=== PATIENT | female | born 1990 | race Caucasian/White ===

== ENCOUNTER 2023-06-15 17:45 | Emergency (ER) | payer OTHER, SELFPAY ==
--- NOTE | 2023-06-15 17:58 | ED.GENADULT ---
HPI - General Adult General Chief complaint: General Medical Stated complaint: pins and needles leg rash Time Seen by Provider: 06/15/23 17:57 Source: patient and EMS Mode of arrival: EMS Limitations: no limitations History of Present Illness HPI narrative: Patient is a 32 year old assigned female at with a history of MAST cell disorder presenting to the emergency department today after an allergic reaction. Patient states that she ate 2 slices of tomato and began to have a reaction with rash and feeling generally unwell. Patient denies any dizziness, lightheadedness, abdominal pain, nausea, vomiting, fever, chills, blurry vision, double vision, loss of vision, chest pain, difficulty breathing, shortness of breath, back pain, night sweats, pain with urination, increased urinary frequency, increased urinary urgency, blood in her urine or stool, syncope or a near syncopal episode, recent trauma or falls, bowel incontinence, bladder incontinence, bowel retention, bladder retention, or any other complaints at this time. Onset (ago): minute(s) Severity: mild Relieving factors: none Exacerbating factors: none Associated symptoms: denies other symptoms Treatments prior to arrival: none Related Data Allergies Allergy/AdvReac Type Severity Reaction Status Date / Time No Known Allergies Allergy Verified 06/15/23 18:13 Review of Systems Constitutional: Constitutional: Reports no additional constitutional complaints, Denies chills, Denies fever(s) and Denies night sweats Eyes: Eyes: Reports no additional eye complaints, Denies blurry vision, Denies change in vision, Denies diplopia, Denies eye discharge, Denies loss of vision and Denies eye pain ENT: Denies dizziness Cardiovascular: Cardiovascular: Reports no additional cardiovascular complaints, Denies chest pain, Denies lightheadedness, Denies Loss of Consciousness and Denies dyspnea Respiratory: Respiratory: Reports no additional respiratory complaints and Denies dyspnea Gastrointestinal: Gastrointestinal: Reports no additional gastrointestinal complaints, Denies abdominal pain, Denies melena, Denies hematochezia, Denies change in bowel habits and Denies change in stool character Genitourinary: Genitourinary: Denies hematuria, Denies urinary frequency, Denies dysuria, Denies urinary incontinence, Denies urinary hesitancy and Denies urinary urgency Musculoskeletal: Musculoskeletal: Reports no additional musculoskeletal complaints, Denies numbness and Denies tingling Integumentary/Breasts: Skin/Breast: Reports rash (now resolved) Neurologic: Denies dizziness, Denies loss of vision, Denies numbness and Denies tingling Psychiatric: Psychiatric: Reports no additional psychiatric complaints Endocrine: Endocrine: Reports no additional endocrine complaints Hematologic/Lymphatic: Hematologic/Lymphatic: Reports no additional hematologic/lymphatic complaints Allergic/Immunologic: Allergic/Immunologic: Reports no additional allergic/immunologic complaints [facility] Past Medical History Attestation statement: The following information was validated with the patient. Source: old records reviewed and nursing notes reviewed Social History Social History Smoked in Last 30 Days: No Use of substances other than those prescribed or required for medical reasons: No Advance Directives: No Advance Directives Information Provided: No Physical Exam ED Vital Signs: Vital Signs - 24 hr 06/15/23 18:06 06/15/23 22:36 06/15/23 23:58 Temperature 98.6 F Pulse Rate 82 89 93 Respiratory Rate 16 20 18 Blood Pressure 142/83 H 117/70 132/83 Pulse Oximetry 100 98 98 Oxygen Delivery Method Room Air Room Air Room Air BMI result Body Mass Index 28.8 Const General: cooperative, no acute distress, alert and awake Nutritional Appearance: well nourished Orientation/consciousness: patient oriented x3 Limitations: no limitations HENMT Head: Yes normal to inspection and Yes atraumatic Ears: hearing grossly normal bilaterally and external ears normal General nose exam: Normal external nose present, no nasal discharge noted and no epistaxis Face and sinus: Yes normal facial exam, No abrasion and No laceration Mouth: Normal oral and palatal mucosa present, no drooling and no muffled voice Eyes General: appearance normal, both eyes and all related structures Periorbital: periorbital findings normal Eyelids: Yes eyelids normal Conjunctivae: conjunctivae normal Pupils: Equal, round and reactive pupils present EOM: EOMs intact bilaterally Neck Neck: Yes normal visual inspection, Yes full ROM and Yes no lymphadenopathy Chest Chest palpation & inspection: normal inspection of the chest Resp Effort & Inspection: normal respiratory effort and able to speak in complete sentences GI Inspection: Yes normal to inspection Neuro General: patient oriented x3 and moves all extremities Cranial nerves: Yes Equal, round and reactive pupils present Cognition (Neuro): normal cognition Motor exam (neuro): 5/5 motor strength present throughout Sensory Exam: Normal double simultaneous stimulation for sensation Coordination: [id number] test normal Extrem General: Yes normal to inspection, Yes full ROM and Yes capillary refill normal Psych Appearance: grossly normal Mental Status: mental status grossly normal Affect: normal affect Attitude: cooperative Thought process: Normal thought process present Thought content: Normal thought content present Insight: Good insight present (Psych) Medications Administered Discontinued Medications Generic Name Dose Route Start Last Admin Trade Name Babita PRN Reason Stop Dose Admin Famotidine 20 mg 06/15/23 18:13 06/15/23 19:57 Famotidine/Pf 20 Mg/2 Ml Vial IVPUSH 06/15/23 18:14 20 mg ONCE ONE Administration Sodium Chloride 1,000 mls @ 999 mls/hr 06/15/23 18:15 06/15/23 21:18 Ns IV 06/15/23 19:15 Infused .Q1H1M CHASE Infusion Medical Decision Making Medical Decision Making [facility] Narrative: Patient is a 32 year old assigned female at with a history of MAST cell activation presenting to the emergency department today with an allergic reaction after ingesting tomato. Patient's physical exam was unremarkable. Patient's blood work was unremarkable. Patient's urine showed no acute process. I explained my physical exam findings as well as all test results to the patient. I answered all questions asked by the patient. Patient declined steroids or benadryl stating that she cannot have them. Patient given IV fluids and pepcid which she stated helped her symptoms significantly. I stressed the importance of the patient taking her medication as prescribed. I stressed the importance of the patient following up with her primary care provider. I stressed the importance of the patient returning to the emergency department immediately if her symptoms were to worsen or if she were to develop any dizziness, shortness of breath, difficulty breathing, chest pain, blurry vision, loss of vision, nausea, vomiting, abdominal pain, fever, chills, back pain, or any other complaints. Patient verbalized agreement and understanding with this treatment plan and discharge. Differential Diagnosis Differential Diagnoses: The differential diagnosis associated with the presentation includes Allergic reaction Mast cell activation Admission/Observation Consideration of admission/observation: Escalation of care including admission/observation considered Patient would have been admitted to the hospital had her work up had any findings where hospital admission was appropriate and her clinical presentation warranted hospital admission. Lab Data [facility] Lab Attestation statement: I reviewed the patient's lab results. My interpretation of these studies and their corresponding values is that they are grossly normal. 06/15/23 19:52 06/15/23 19:52 Labs: Lab Results 06/15/23 06/15/23 Range/Units 19:52 20:37 WBC 8.6 (4.8-10.8) X10*3/uL RBC 3.97 L (4.20-5.50) X10*6/uL Hgb 11.7 L (12.0-16.0) g/dl Hct 35.1 L (37.0-47.0) % MCV 88.4 (80.0-98.0) fL MCH 29.5 (27.0-33.0) pg MCHC 33.3 (31.0-35.0) g/dl RDW 13.4 (11.0-16.0) % Plt Count 398 (160-400) X10*3/uL MPV 10.7 (9.4-12.3) fL Immature Gran % (Auto) 0.2 (0.0-0.4) % Neut % (Auto) 64.7 (45-73) % Lymph % (Auto) 25.7 (20-40) % [place] % (Auto) 7.8 (2-11) % Eos % (Auto) 1.4 (0-4) % Baso % (Auto) 0.2 (0-2) % Lymph # (Auto) 2.2 (1.2-4.9) X10*3/uL [place] # (Auto) 0.7 (0.1-1.2) X10*3/uL Eos # (Auto) 0.1 (0.0-0.4) X10*3/uL Baso # (Auto) 0.0 (0.0-0.2) X10*3/uL Abs Immat Gran (auto) 0.02 (0.00-0.03) X10*3/uL Absolute Neuts (auto) 5.6 (2.0-8.3) x10*3/uL Absolute Nucleated RBC 0.000 (0.0-0.012) X10*3/uL Nucleated RBC % (auto) 0.0 (0.0-0.2) /100WBC Sodium 141 (135-145) mmol/L Potassium 3.8 (3.3-5.1) mmol/L Chloride 105 (96-108) mmol/L Carbon Dioxide 26 (22-29) mmol/L Anion Gap 14 (12-20) BUN 15 (9-16) mg/dL Creatinine 0.72 (0.5-1.4) mg/dL Estim Creat Clear Calc 106.9 Estimated GFR > 60 Random Glucose 103 (60-115) mg/dL Calcium 9.5 (8.4-10.2) mg/dL Magnesium 2.1 (1.6-2.6) mg/dL Total Bilirubin 0.2 (0.0-1.0) mg/dL AST 25 (5-31) U/L ALT 26 (0-31) U/L Alkaline Phosphatase 65 (39-117) U/L Total Protein 7.5 (6.5-8.0) g/dL Albumin 4.3 (3.5-5.0) g/dL Urine Color Yellow Urine Appearance Clear Urine pH 6.5 (5.0-9.0) Ur Specific [place] <= 1.005 (1.005-1.025) Urine Protein Negative (Neg-Trace) mg/dL Urine Glucose (UA) Negative (Negative) mg/dL Urine Ketones Negative (Negative) mg/dL Urine Blood Negative (Negative) Urine Nitrite Negative (Negative) Ur Leukocyte Esterase Trace H (Negative) Urine RBC 3-5 H (0-2) /HPF Urine WBC 0-5 (0-5) /HPF Ur Squamous Epith Cells 0-2 (0-2) /HPF Urine Bacteria None Seen (None Seen) Hyaline Casts 0-2 (0-2) /LPF Independent Historian Clinical information obtained from an independent historian. History obtained from or confirmed by: EMS (EMS provided additional history and confirmed the history provided by the patient.) Discharge Plan Discharge Clinical Impression: Allergic reaction Patient Disposition: Xfer Other Transfer Details: Jocelyn Nicole Instructions: General Allergic Reaction (ED) Additional Instructions: Follow up with your primary care provider. Return to the emergency department immediately if your symptoms worsen or if you develop any dizziness, shortness of breath, difficulty breathing, chest pain, blurry vision, loss of vision, nausea, vomiting, abdominal pain, fever, chills, back pain, or any other complaints. Referrals: [facility] Family Medicine [Provider Group] (Call to establish and follow up with a primary care provider. If you already have a primary care provider, please follow up with them.) [facility] Primary Care, Devin [Provider Group] (Call to establish and follow up with a primary care provider. If you already have a primary care provider, please follow up with them.) [facility] Primary Care,Meliza [Provider Group] (Call to establish and follow up with a primary care provider. If you already have a primary care provider, please follow up with them.) Interventions: ED Discharge Assessment Last Done: 06/15/23 23:59 Discharge Date/Time: 06/15/23 23:59 Print Language: Pakistani
[2023-06-15 18:06] VITALS: BP 142/83; BP 148/90; PULSE 82; PULSE 97; RESP 16; O2SAT 100; BMI 28.8
--- NOTE | 2023-06-15 19:18 | PC.NURSE ---
pt a&o x4, pleasant, calm, and cooperative. comes from annika medina for allergic reaction from eating raw tomatoes that has since subsided. pt lung sounds clear throughout. no rash, no swelling, pt speaking in full complete sentences. managing secretions appropriately. 1:1 sitter at bedside, pt a section 21. rr even/unlabored. plan of care ongoing. handoff report given to TRISH Coreas.
[2023-06-15 19:57] LABS: MANUAL DIFF FLAG NO
[2023-06-15] MEDS: 0.9 % Sodium Chloride 1,000 ML 999 ML IV (19:57)
[2023-06-15] MEDS: Famotidine/PF 20 MG/2 ML VIAL IVPUSH (19:57)
[2023-06-15 19:58] LABS: Basophils Percent Auto 0.2 % (0-2); Eosinophils Absolute Auto 0.1 X10*3/uL (0.0-0.4); Eosinophils Percent Auto 1.4 % (0-4); Hematocrit 35.1 % (37.0-47.0); Hemoglobin 11.7 g/dl (12.0-16.0); Imm Gran Abs Auto 0.02 X10*3/uL (0.00-0.03); Imm Gran Pct Auto 0.2 % (0.0-0.4); Lymphocytes Absolute Auto 2.2 X10*3/uL (1.2-4.9); Lymphocytes Percent Auto 25.7 % (20-40); Mean Corpuscular HGB Conc 33.3 g/dl (31.0-35.0); Mean Corpuscular Hemoglobin 29.5 pg (27.0-33.0); Mean Corpuscular Volume 88.4 fL (80.0-98.0); Mean Platelet Volume 10.7 fL (9.4-12.3); Monocytes Absolute Auto 0.7 X10*3/uL (0.1-1.2); Monocytes Percent Auto 7.8 % (2-11); Neutrophils Absolute Auto 5.6 x10*3/uL (2.0-8.3); Neutrophils Percent Auto 64.7 % (45-73); Platelet Count 398 X10*3/uL (160-400); Red Blood Count 3.97 X10*6/uL (4.20-5.50); Red Cell Distribution Width 13.4 % (11.0-16.0); White Blood Count 8.6 X10*3/uL (4.8-10.8)
[2023-06-15 20:11] LABS: Alanine Aminotransferase 26 U/L (0-31); Albumin Level 4.3 g/dL (3.5-5.0); Alkaline Phosphatase 65 U/L (39-117); Anion Gap 14 (12-20); Aspartate Amino Transferase 25 U/L (5-31); Bilirubin Total 0.2 mg/dL (0.0-1.0); Blood Urea Nitrogen 15 mg/dL (9-16); Calcium 9.5 mg/dL (8.4-10.2); Carbon Dioxide 26 mmol/L (22-29); Chloride 105 mmol/L (96-108); Creatinine Clr Calc Pharmacy 106.9; Estimated Glomerular Filt Rate > 60; Glucose Random 103 mg/dL (60-115); Magnesium 2.1 mg/dL (1.6-2.6); Potassium 3.8 mmol/L (3.3-5.1); Sodium 141 mmol/L (135-145); Total Protein 7.5 g/dL (6.5-8.0)
--- OUTSIDE RECORDS SUMMARY | 2023-06-15 20:17 | XMS_ITS | Continuity of Care Document ---
Author Name Unknown Organization [facility] Address [address] [place] [id number]- Care Team Providers Care Tip Puncher Name Role Phone Not on Staff, PCP Primary Care Physician Unavail able Encounter [facility] Date(s): 06/12/23 - 06/13/[address] [address]- Encounter Diagnosis Shortness of breath(Final) - 06/12/23 Discharge Disposition: A-D/C Home Attending Physician: Deja Bynum DO Admitting Physician: Deja Bynum DO Referring Physician: Not on Staff, Referring MD Allergies, Adverse Reactions, Alerts Substance Reaction Severity Status shellfish Active Vital Signs Most recent to oldest [Reference Range]: 1 2 3 Oxygen Saturation [94-100 %] 97 % (06/13/23 2:38 AM) 100 % (06/12/23 7:55 PM) 100 % (06/12/23 5:42 PM) Pulse Rate [55-90 bpm] 91 bpm *H* (06/13/23 2:38 AM) 88 bpm (06/12/23 7:55 PM) 94 bpm *H* (06/12/23 5:42 PM) Blood Pressure [90-138/55-84 mm Hg] 134/81mm Hg (06/13/23 2:38 AM) 132/87mm Hg (06/12/23 7:55 PM) 142/86mm Hg *H* (06/12/23 5:42 PM) Respiratory Rate [16-30 br/min] 16 br/min (06/13/23 2:38 AM) 19 br/min (06/12/23 7:55 PM) 18 br/min (06/12/23 5:42 PM) Temperature [96.8-100.4 DegF] 98.1 DegF (06/13/23 2:38 AM) 98.1 DegF (06/12/23 7:55 PM) 98.0 DegF (06/12/23 5:42 PM) Mode of Delivery (Oxygen) Room air (06/13/23 2:38 AM) Room air (06/12/23 7:55 PM) Room air (06/12/23 5:42 PM) Blood pressure sites Arm, right (06/13/23 2:38 AM) Arm, left (06/12/23 5:42 PM) Temperature Route Oral (06/13/23 2:38 AM) Oral (06/12/23 7:55 PM) Oral (06/12/23 5:42 PM) EKG study * Event Display: EKG Authored Date: Patient Care team information Care Team Personnel Name: Not on Staff, PCP Position: [facility] Physician (General Medicine) Member Role: PCP Name: Gemma Carlin DO Position: [facility] Resident Member Role: Resident Address: Address: [address] [place] [address] Name: Charissa Goode Position: [facility] ED RN W/OE and Tasks Member Role: Patient Care Provider Name: Deja Bynum DO Position: [facility] Resident Member Role: ED Attending Physician Address: Address: [address] [place] [address]
--- OUTSIDE RECORDS SUMMARY | 2023-06-15 20:17 | XMS_ITS | Continuity of Care Document ---
Author Name [facility] Address [address] [place] [address] Organization [facility] Address [address] [place] [address] Support Name Relationship Address Phone Cielo Blake Primary Care Provider [address] [place] [address] Rodolfo Parr Emergency Provider [facility] Emergen cy Department [address] [place] [address] Allergies, Adverse Reactions, Alerts Allergen Type Severity Reaction Last Updated Verified Status aripiprazole Allergy Swelling of Lip/Tongue/Throa t February 11, 2020 Y Active latex Allergy Hives February 11, 2020 Y Active risperidone Allergy Swelling of the Face February 11, 2020 Y Active Serotonin 5HT-3 Antagonists Allergy Swelling of the Face February 11, 2020 Y Active Medications Active Medications Medication Dose Units Route Sig Qty Start Date Status In structions Epinephrine [Epipen 2-Anand] 0.581 MG Intramusc Q15M PRN For Allergic Reaction July 29, 2019 Active do not exceed 3 doses per episode Epinephrine 0.1 ML Intramusc One Time Dose December 09, 2019 Active Diphenhydramine Hcl [Allergy (Diphenhydramine)] 50 MG Oral Q6H November 182019 Active Famotidine [Acid Curb Supervisor (Famotidine)] 20 MG Oral Twice A Day December 09, 2019 Active Problem List Active Problems Medical Problem Onset Date Status Adverse reaction to drug Active Allergic reaction Active Inactive/Resolved Problems Medical Problem Onset Date Status Allergic reaction Inactive Procedures No known history of procedures. Relevant Diagnostic Tests and/or Laboratory Data Laboratory Results Test Date/Time Result Interp. Ref. Range Result Co mment White Blood Count February 11, 2020 2:30am 7.22 K/uL 4.0-10.0 Red Blood Count February 11, 2020 2:30am 4.09 M/uL 3.9-5.2 Hemoglobin February 11, 2020 2:30am 10.7 g/dL Low 11.2-15.7 Hematocrit February 11, 2020 2:30am 33.9 % Low 34-45 Mean Corpuscular Volume February 11, 2020 2:30am 82.9 fL 82.0-98.0 Mean Corpuscular Hemoglobin February 11, 2020 2:30am 26.2 pg 26.0-32.0 Mean Corpuscular Hemoglobin Concent February 11, 2020 2:30am 31.6 g/dL 30.5-35.8 Platelet Count February 11, 2020 2:30am 368 K/uL 150-400 RDW Standard Deviation February 11, 2020 2:30am 43.4 fL 35.1-46.3 RDW Coefficient of Variation February 11, 2020 2:30am 14.2 % 10.5-15.5 Mean Platelet Volume February 11, 2020 2:30am 12.5 fL High 8.3-12.4 Neutrophils (%) (Auto) February 11, 2020 2:30am 52.0 % 34.0-71.0 Lymphocytes (%) (Auto) February 11, 2020 2:30am 38.9 % 19.0-53.0 Monocytes (%) (Auto) February 11, 2020 2:30am 6.8 % 5.0-13.0 Eosinophils (%) (Auto) February 11, 2020 2:30am 1.4 % 1.0-7.0 Basophils (%) (Auto) February 11, 2020 2:30am 0.6 % 0-1.0 Immature/Total Granulocytes (auto) February 11, 2020 2:30am 0.3 % 0.0-2.0 Nucleated Red Blood Cells % (auto) February 11, 2020 2:30am 0.0 % 0.0-0.2 Absolute Neutrophils (auto) February 11, 2020 2:30am 3.76 K/uL 1.6-6.1 Absolute Lymphocytes (auto) February 11, 2020 2:30am 2.81 K/uL 1.2-3.7 Absolute Monocytes (auto) February 11, 2020 2:30am 0.49 K/uL 0.2-0.8 Absolute Eosinophils (auto) February 11, 2020 2:30am 0.10 K/uL 0.04-0.54 Absolute Basophils (auto) February 11, 2020 2:30am 0.04 K/uL 0.01-0.08 Absolute Immature Granulocyte (auto February 11, 2020 2:30am 0.02 K/uL 0.00-0.8 Nucleated RBC Absolute Count (auto) February 11, 2020 2:30am 0.00 K/uL 0.00-0.08 Sodium Level February 11, 2020 2:30am 138 mmol/L 136-145 Potassium Level February 11, 2020 2:30am 3.1 mmol/L Low 3.5-5.1 Chloride Level February 11, 2020 2:30am 101 mmol/L 98-107 Carbon Dioxide Level February 11, 2020 2:30am 22.0 mmol/L 22-32 Blood Urea Nitrogen February 11, 2020 2:30am 18 mg/dL 6-20 Creatinine February 11, 2020 2:30am 0.67 mg/dL 0.51-0.95 Glomerular Filtration Rate Calc February 11, 2020 2:30am > 60.00 SEE TEXT 60- Glomerular Filtration Rate, Estimated Reference Range: Greater than 60 mL/min/1.73 sq. meter. Multiply result by 1.21 if patient is . Glucose Level February 11, 2020 2:30am 151 mg/dL High 70-110 Calcium Level February 11, 2020 2:30am 9.4 mg/dL 8.5-10.6 Total Bilirubin February 11, 2020 2:30am < 0.15 mg/dL 0.00-1.00 Aspartate Amino Transf (AST/SGOT) February 11, 2020 2:30am 21 U/L 0-32 Alanine Aminotransferase (ALT/SGPT) February 11, 2020 2:30am 19 U/L 0-33 Alkaline Phosphatase February 11, 2020 2:30am 56 U/L 35-104 Total Protein February 11, 2020 2:30am 7.7 g/dL 6.6-8.7 Albumin February 11, 2020 2:30am 4.6 g/dL 3.5-5.2 Chemistry Specimen Hemolysis Index February 11, 2020 2:30am Not Reportable Advance Directives Advance Directive Response Recorded Date/ Time Date Patient Queried 12/11/19 December 10 8:34pm Does the patient have a Healthcare Proxy? No July 29, 2019 10:53am Healthcare Proxy Status Informed Patient November 8:34pm Chief Complaint and Reason for Visit Encounter Admit Date Chief Complaint Reason for V isit Departed Emergency February 11, 2020 2:14am Allergic [facility] Hospital Discharge Instructions Additional Discharge Instructions You we re seen in the emergency department for your reaction and you received an EpiPen prior to arrival. You were given Solu-Medrol 125 mg as well as Pepcid. You were observed for 3 hours total in the emergency department, 4 hours since your epinephrine injection and you felt improved. You also a slightly low potassium level and you should eat potassium rich foods. At this time you are safe to be discharged home. Please follow-up with your primary care doctor in the next 2 to 3 days. Please return for any new or concerning symptoms. Instruction/Education Provided General A llergic Reaction (ED) Hospital Discharge Medications Medication Dose Units Route Sig Qty Days Order Date Status Instructions Epinephrine 0.581 MG Intramusc Q15M PRN For Allergic Reaction 1 July 29, 2019 Active do not exceed 3 doses per episode Epinephrine 0.1 ML Intramusc One Time Dose 2 December 09, 2019 Active Diphenhydramine Hcl 50 MG Oral Q6H December 09, 2019 Active Famotidine 20 MG Oral Twice A Day December 09, 2019 Active Encounters Encounter Facility Location Admit/Visit Date Discharge/Departure Date Attending Provider Departed Emergency [facility] Emergency Department February 11, 2020 2:14am February 11, 2020 5:55am Departed Emergency [facility] Emergency Department December 11, 2019 8:17pm December 11, 2019 10:18pm Departed Emergency [facility] Emergency Department December 11, 2019 1:30am December 11, 2019 4:22am Departed Emergency [facility] Emergency Department December 09, 2019 11:52am December 09, 2019 4:07pm Departed Emergency [facility] Emergency Department July 29, 2019 9:52am July 29, 2019 3:26pm Functional Status Query Response Date Recorded Comment Patient Orientation Oriented x3 Awake Alert February 11, 2020 2:22am Immunizations No known immunizations. Payers Payer Name Policy Type Covered Democrat Covered Democrat Id Relationship Subscriber Subscriber Id Self Pay Personal Payment (Cramer - No Insurance) [employer] [employer] Medicaid Medicaid Heidi Mack [id number] Self/Same as Patient Heidi Mack [id number] Plan of Care Instructions General Allergic Reaction (E D) Social History Query Response Date Recorded Comment Does the patient use drugs? Yes February 10 2:22am Is pt a current\former smoke r or user of tobacco products? No February 11, 2020 2:38am On average how many days per week do you drink alcohol? 0 February 11, 2020 2:38am Query Response Start Date Stop Date Is pt a current\former smoke r or user of tobacco products? No Vital Signs Vital Reading Result Reference Range Collection Date/Time Height 5 ft 6 in February 11, 2020 2:22am Weight 69 kg February 11, 2020 2:22am Temperature 98.1 F 97.5 F-99.3 F February 10 0 5:31am Pulse 90 BPM 60-90 February 11, 2020 5:31am Respiration 17 RPM 12-20 February 11, 2020 5:31am Pulse Oximetry 100 % 95-100 February 10 5:31am Blood Pressure Systolic 115 100-[address] 2019 5:31am Blood Pressure Diastolic 79 60-90 Jan us2019 5:31am
--- OUTSIDE RECORDS SUMMARY | 2023-06-15 20:17 | XMS_ITS | Continuity of Care Document ---
Author Name Unknown Organization [facility] Address [address] [place] [id number] Care Team Providers Care Instructor Robotics Name Role Phone Unavailable, Provider Primary Care Physician Britta vailable Encounter [facility] [id number] Date(s): 10/31/22 - 11/01/[address] [address] - Encounter Diagnosis Migraine(Discharge Diagnosis) - 11/01/22 Discharge Disposition: Home or Self Care Attending Physician: Delmi Webb MD Admitting Physician: Delmi Webb MD Referring Physician: Delmi Webb MD Allergies, Adverse Reactions, Alerts Substance Reaction Severity Status ketamine Severe Active predniSONE Unknown Active Dairy Unknown Active Glutens Unknown Active Estrogens Unknown Active traZODone Unknown Active Functional Status 10/31/22 Other exposure to Infectious Disease Non e Immunizations Given and Recorded Vaccine Date Status Refusal Reason human papillomavirus vaccine 06/04/09 Recorded human papillomavirus vaccine 01/02/09 Recorded human papillomavirus vaccine 12/03/08 Recorded hepatitis B pediatric vaccine 04/03/91 Recorded hepatitis B pediatric vaccine 11/01/90 Recorded measles/mumps/rubella virus vaccine 11/01/90 Recor ded Medications acetaminophen 500 mg oral tablet 1,000 mg = 2 tab, Oral, every 6 hr, PRN as needed for pain, # 100 tab, 0 Refill(s), Start Date: 11/18/20 15:53:00 EDT, Pharmacy: [facility]/pharmacy #[id number] Start Date: 11/18/20 Status: Ordered Allergy (Loratadine) 10 mg oral tablet 20 mg = 2 tab, Oral, Daily, # 30 tab, 0 Refill(s), Start Date: 11/07/20 17:47:00 EDT Start Date: 11/07/20 Status: Ordered Benadryl 25 mg oral capsule 25 mg = 1 cap, Oral, every 4 hr, PRN itching/rash, # 100 cap, 0 Refill(s), Start Date: 11/18/20 15:50:00 EDT, Pharmacy: [facility]/pharmacy #[id number] Start Date: 11/18/20 Status: Ordered diphenhydrAMINE-zinc acetate 2%-0.1% topical cream 1 omid, Topical, TID, PRN allergy symptoms, # 30 g, 0 Refill(s), Start Date: 11/18/20 15:53:00 EDT, Pharmacy: [facility]/pharmacy #[id number] Start Date: 11/18/20 Status: Ordered famotidine 20 mg =, BID, 0 Refill(s), Start Date: 11/08/20 0:59:00 EDT Start Date: 11/08/20 Status: Ordered ibuprofen 400 mg oral tablet 400 mg = 1 tab, Oral, every 6 hr, PRN pain, mild, # 40 tab, 0 Refill(s), Start Date: 11/18/20 15:54:00 EDT, [id number] Start Date: 11/18/20 Status: Ordered ketotifen ketotifen, See Instructions, 1 mg by mouth in the morning, 2 mg in the evening., 0 Refill(s), StartDate: 11/09/20 19:40:00 EDT Start Date: 11/09/20 Status: Ordered metoclopramide 5 mg oral tablet, disintegrating 5 mg = 1 tab, Oral, QID(ACHS), PRN headache, Beware drowsiness. No driving if you take this., # 12 tab, 0 Refill(s), Start Date: 11/01/22 3:30:00 EDT, Pharmacy: [facility]/pharmacy #[id number], 157, cm, 10/31/22 23:49:00 EDT, Height/Length Dosing, 76.8, kg, 10/31... Start Date: 11/01/22 Status: Ordered polyethylene glycol 3350 oral powder for reconstitution 17 g =, Oral, Daily, PRN constipation, dissolve in water before taking, # 527 g, 0 Refill(s), StartDate: 11/18/20 15:54:00 EDT, Pharmacy: [facility]/pharmacy #[id number] Start Date: 11/18/20 Status: Ordered SUMAtriptan 25 mg =, Oral, PRN migraine headache, 0 Refill(s), Start Date: 11/08/20 1:01:00 EDT Start Date: 11/08/20 Status: Ordered template non-formulary (medication) See Instructions, Palermo 8 mEq / 5 mL. Take 0.5 mL by mouth oce daily at bedtime. Discuss this with your primary psychiatrist first., 0 Refill(s), Start Date: 11/18/20 15:51:00 EDT Start Date: 11/18/20 Status: Ordered Problem List Condition Confirmation Course Effective Dates Status Health St atus Informant Bipolar disorder Confirmed Active Mast cell activation syndrome Confirmed Active Pancreatic cyst Confirmed Active Results Laboratory List Name Date Automated Differential 11/01/22 Basic Metabolic Panel (BMP) 11/01/22 CBC w/ Differential 11/01/22 Serum Test Qualitative 11/01/22 Most recent to oldest [Reference Range]: 1 WBC [4.5-11.0 x10^3/mcL] 6.7 x10^3/mcL (11/01/22 1:31 AM) RBC [3.96-5.27 x10^6/mcL] 4.15 x10^6/mcL (11/01/22 1:31 AM) Neutro Auto [42.0-72.0 %] 51.7 % (11/01/22 1:31 AM) Lymph Auto [25.0-45.0 %] 36.6 % (11/01/22 1:31 AM) Woodford Auto [3.0-10.0 %] 8.8 % (11/01/22 1:31 AM) Basophil Auto [0.0-2.0 %] 0.4 % (11/01/22 1:31 AM) BUN [8-21 mg/dL] 8 mg/dL (11/01/22 1:31 AM) Glucose Level [70-100 mg/dL] 99 mg/dL (11/01/22 1:31 AM) Potassium Level [3.5-5.3 mmol/L] 3.7 mmo l/L (11/01/22 1:31 AM) Baso Absolute [0.00-0.20 x10^3/mcL] 0.03 x10^3/mcL (11/01/22 1:31 AM) MCV [82.0-96.0 fL] 84.8 fL (11/01/22 1:31 AM) MCHC [32.2-35.5 g/dL] 33.8 g/dL (11/01/22 1:31 AM) Sodium Level [136-145 mmol/L] 141 mmol/L (11/01/22 1:31 AM) Lymph Absolute [1.30-3.40 x10^3/mcL] 2.4 4 x10^3/mcL (11/01/22 1:31 AM) Hct [37.0-45.0 %] 35.2 % *LOW* (11/01/22 1: AM) Calcium Level [8.7-10.4 mg/dL] 9.1 mg/dL (11/01/22 1:31 AM) Woodford Absolute [0.00-0.60 x10^3/mcL] 0.59 x10^3/mcL (11/01/22 1:31 AM) MCH [26.8-31.9 pg] 28.7 pg (11/01/22 1:31 AM) Neutro Absolute [1.40-6.50 x10^3/mcL] 3. 44 x10^3/mcL (11/01/22 1:31 AM) Hgb [11.6-15.5 g/dL] 11.9 g/dL (11/01/22 1:31 AM) MPV [9.4-12.4 fL] 11.5 fL (11/01/22 1:31 AM) Platelets [150-450 x10^3/mcL] 340 x10^3/ mcL (11/01/22 1:31 AM) CO2 [24-31 mmol/L] 26 mmol/L (11/01/22 1:31 AM) Eos Absolute [0.00-0.30 x10^3/mcL] 0.15 x10^3/mcL (11/01/22 1:31 AM) Chloride Level [98-107 mmol/L] 108 mmol/ L *HI* (11/01/22 1:31 AM) BUN/Creat Ratio [10.0-20.0 mg/dL] 12.9 m g/dL (11/01/22 1:31 AM) hCG Qual Serum [Negative] Negative (11/01/22 1:31 AM) Imm Gran Auto [0.001-0.429 %] 0.300 % (11/01/22 1:31 AM) RDW-CV [12.0-15.0 %] 13.6 % (11/01/22 1:31 AM) Creatinine Level [0.55-1.02 mg/dL] 0.62 mg/dL (11/01/22 1:31 AM) Anion Gap [3-16] 7 (11/01/22 1:31 AM) Eos, Auto [0.0-5.0 %] 2.2 % (11/01/22 1:31 AM) eGFR CKD-EPI [>=60 mL/min/1.73 m2] >60 m L/min/1.73 m2 (11/01/22 1:31 AM) Vital Signs Most recent to oldest [Reference Range]: 1 2 3 Temperature Oral [35.8-37.3 Deg C] 36.6 Deg C (11/01/22 3:43 AM) 37.0 Deg C (10/31/22 11:44 PM) Peripheral Pulse Rate [60-100 bpm] 84 bpm (11/01/22 3:43 AM) 87 bpm (11/01/22 3:33 AM) 79 bpm (10/31/22 11:44 PM) Respiratory Rate [12-24 br/min] 18 br/min (10/31/22 11:44 PM) Blood Pressure [90-140/60-90 mmHg] 137/84mmHg (11/01/22 3:43 AM) 128/83mmHg (11/01/22 3:33 AM) 136/90mmHg (10/31/22 11:44 PM) SpO2 [94 %] 96 % (11/01/22 3:43 AM) 98 % (11/01/22 3:33 AM) 99 % (10/31/22 11:44 PM) Triage Height 157 cm (10/31/22 11:44 PM) Triage Weight 76.8 kg (10/31/22 11:44 PM) Mean Arterial Pressure 105.3 mmHg (10/31/22 11:44 PM) Body Mass Index Triage 31 (10/31/22 11:44 PM) Weight 76.80 kg (10/31/22 11:44 PM) Weight Dosing 76.80 kg (10/31/22 11:49 PM) Height 157.000 cm (10/31/22 11:44 PM) Height/Length Dosing 157.000 cm (10/31/22 11:49 PM) Body Mass Index 31.000 kg/m2 (10/31/22 11:44 PM) Social History Social History Type Response Tobacco Tobacco Use: Never t obacco user. Sex Female Hospital Discharge Instructions Patient Education 11/01/2022 01:12:13 Migraine Headache Migraine Headache A migraine headache is an intense, throbbing pain on one side or both sides of the head. Migraine headaches may also cause other symptoms, such as nausea, vomiting, and sensitivity to light and noise. A migraine headache can last from 4 hours to 3 days. Talk with your doctor about what things may bring on (trigger) your migraine headaches. What are the causes? The exact cause of this condition is not known. However, a migraine may be caused when nerves in the brain become irritated and release chemicals that cause inflammation of blood vessels. This inflammation causes pain. This condition may be triggered or caused by: ??? Drinking alcohol. ??? Smoking. ??? Taking medicines, such as: ??? Medicine used to treat chest pain (nitroglycerin). ??? control pills. ??? Estrogen. ??? Certain blood pressure medicines. ??? Eating or drinking products that contain nitrates, glutamate, aspartame, or tyramine. Aged cheeses, chocolate, or caffeine may also be triggers. ??? Doing physical activity. Other things that may trigger a migraine headache include: ??? Menstruation. ??? . ??? Hunger. ??? Stress. ??? Lack of sleep or too much sleep. ??? Weather changes. ??? Fatigue. What increases the risk? The following factors may make you more likely to experience migraine headaches: ??? Being a certain age. This condition is more common in people who are 25???55 years old. ??? Being female. ??? Having a family history of migraine headaches. ??? Being . ??? Having a mental health condition, such as depression or anxiety. ??? Being obese. What are the signs or symptoms? The main symptom of this condition is pulsating or throbbing pain. This pain may: ??? Happen in any area of the head, such as on one side or both sides. ??? Interfere with daily activities. ??? Get worse with physical activity. ??? Get worse with exposure to bright lights or loud noises. Other symptoms may include: ??? Nausea. ??? Vomiting. ??? Dizziness. ??? General sensitivity to bright lights, loud noises, or smells. Before you get a migraine headache, you may get warning signs (an aura). An aura may include: ??? Seeing flashing lights or having blind spots. ??? Seeing bright spots, halos, or zigzag lines. ??? Having tunnel vision or blurred vision. ??? Having numbness or a tingling feeling. ??? Having trouble talking. ??? Having muscle weakness. Some people have symptoms after a migraine headache (postdromal phase), such as: ??? Feeling tired. ??? Difficulty concentrating. How is this diagnosed? A migraine headache can be diagnosed based on: ??? Your symptoms. ??? A physical exam. ??? Tests, such as: ??? CT scan or an MRI of the head. These imaging tests can help rule out other causes of headaches. ??? Taking fluid from the spine (lumbar puncture) and analyzing it (cerebrospinal fluid analysis, or CSF analysis). How is this treated? This condition may be treated with medicines that: ??? Relieve pain. ??? Relieve nausea. ??? Prevent migraine headaches. Treatment for this condition may also include: ??? Acupuncture. ??? Lifestyle changes like avoiding foods that trigger migraine headaches. ??? Biofeedback. ??? Cognitive behavioral therapy. Follow these instructions at home: Medicines ??? Take tpai-tip-xazhgok and prescription medicines only as told by your health care provider. ??? Ask your health care provider if the medicine prescribed to you: ??? Requires you to avoid driving or using heavy machinery. ??? Can cause constipation. You may need to take these actions to prevent or treat constipation: ??? Drink enough fluid to keep your urine pale yellow. ??? Take rkuw-niz-ddkfrgi or prescription medicines. ??? Eat foods that are high in fiber, such as beans, whole grains, and fresh fruits and vegetables. ??? Limit foods that are high in fat and processed sugars, such as fried or sweet foods. Lifestyle ??? Do not drink alcohol. ??? Do not use any products that contain nicotine or tobacco, such as cigarettes, e-cigarettes, andchewing tobacco. If you need help quitting, ask your health care provider. ??? Get at least 8 hours of sleep every night. ??? Find ways to manage stress, such as meditation, deep breathing, or yoga. General instructions ??? Keep a journal to find out what may trigger your migraine headaches. For example, write down: ??? What you eat and drink. ??? How much sleep you get. ??? Any change to your diet or medicines. ??? If you have a migraine headache: ??? Avoid things that make your symptoms worse, such as bright lights. ??? It may help to lie down in a dark, quiet room. ??? Do not drive or use heavy machinery. ??? Ask your health care provider what activities are safe for you while you are experiencing symptoms. ??? Keep all follow-up visits as told by your health care provider. This is important. Contact a health care provider if: ??? You develop symptoms that are different or more severe than your usual migraine headache symptoms. ??? You have more than 15 headache days in one month. Get help right away if: ??? Your migraine headache becomes severe. ??? Your migraine headache lasts longer than 72 hours. ??? You have a fever. ??? You have a stiff neck. ??? You have vision loss. ??? Your muscles feel weak or like you cannot control them. ??? You start to lose your balance often. ??? You have trouble walking. ??? You faint. ??? You have a seizure. Summary ??? A migraine headache is an intense, throbbing pain on one side or both sides of the head. Migraines may also cause other symptoms, such as nausea, vomiting, and sensitivity to light and noise. ??? This condition may be treated with medicines and lifestyle changes. You may also need to avoid certain things that trigger a migraine headache. ??? Keep a journal to find out what may trigger your migraine headaches. ??? Contact your health care provider if you have more than 15 headache days in a month or you develop symptoms that are different or more severe than your usual migraine headache symptoms. This information is not intended to replace advice given to you by your health care provider. Make sure you discuss any questions you have with your health care provider. Document Revised: 09/27/2019 Document Reviewed: 07/18/2019 [employer] Patient Education ?? 2021 [employer]. Follow Up Care 10/31/2022 23:40:48 With:Follow up with your neurologist as scheduled Address:Unknown When: Unknown With:Cielo Blake MD Address: [address] [place] [address] [address] [place] [address]- When: Unknown Emergency department Discharge summary * Gloria Dunaway L: SIGN Delmi Webb MD: SIGN, PERFORM Delmi Webb MD: PERFORM, SIGN Delmi Webb MD: SIGN, VERIFY Delmi Webb MD: VERIFY Event Display: ED Clinical Summary Authored Date: [id number] [address] Clinical Summary PERSON INFORMATION Name: JANETTE MONGE Age: 31 Years : 1990 Sex: Female Language: Marshallese PCP: Unavailable, Provider Marital Status: Single Med Service: Emergency Medicine Arrival: 10/31/2022 23:40:29 Visit Reason: CARDENAS - Headache; Headaches Acuity: 3 - Urgent LOS: 000 03:53 Address: [address] [place] [id number] Diagnosis: Migraine Medications Administered: Medication Dose Route Sodium Chloride 0.9% 1,000 mL 1000 mL Initial Volume 500 mL/hr IV Left Hand ketorolac (Toradol) 15 mg IV Push metoclopramide (Reglan) 10 mg IV Push diphenhydrAMINE (Benadryl) 25 mg IV Push Radiology Orders: Laboratory Orders: Automated Differential Blood, Stat, Collected, 11/01/22 1:31:00 EDT, Once, Lab Collect, [id number] BMP Blood, Stat, 11/01/22 1:26:00 EDT, Once, Lab Collect CBC w/ Differential Blood, Stat, 11/01/22 1:26:00 EDT, Once, Lab Collect Extra Tube - Blue Blood, Stat, Collected, 11/01/22 1:31:00 EDT, by [id number], Once, Lab Collect, 2.7 mL Blue NaCit 2.7mL/*[id number]*/ Serum Test Qualitative Blood, Stat, 11/01/22 1:26:00 EDT, Once, Lab Collect Lab and Rad: Laboratory or Other Results This Visit??(last charted value for your??10/31/2022??visit) ?Hematology ?11/01/2022?1:31 AM ?WBC:??6.7??x10^3/mcL??--??Normal range between??(??4.5??and??11.0??)?RBC:??4.15??x10^6/mcL??--??Normal range between??(??3.96??and??5.27??)?Neutro Auto:??51.7??%??--??Normal range between??(??42.0??and??72.0??)?Lymph Auto:??36.6??%??--??Normal range between??(??25.0??and??45.0??)?Woodford Auto:??8.8??%??--??Normal range between??(??3.0??and??10.0??)?Basophil Auto:??0.4??%??--??Normal range between??(??0.0??and??2.0??)?Baso Absolute:??0.03??x10^3/mcL??--??Normal range between??(??0.00??and??0.20??)?MCV:??84.8??fL??--??Normal range between??(??82.0??and??96.0??)?MCHC:??33.8??g/dL??--??Normal range between??(??32.2??and??35.5??)?Lymph Absolute:??2.44??x10^3/mcL??--??Normal range between??(??1.30??and??3.40??)?Hct:??35.2??%??--??Normal range between??(??37.0??and??45.0??)?Woodford Absolute:??0.59??x10^3/mcL??--??Normal range between??(??0.00??and??0.60??)?MCH:??28.7??pg??--??Normal range between??(??26.8??and??31.9??)?Neutro Absolute:??3.44??x10^3/mcL??--??Normal range between??(??1.40??and??6.50??)?Hgb:??11.9??g/dL??--??Normal range between??(??11.6??and??15.5??)?MPV:??11.5??fL??--??Normal range between??(??9.4??and??12.4??)?Platelets:??340??x10^3/mcL??--??Normal range between??(??150??and??450??)?Eos Absolute:??0.15??x10^3/mcL??--??Normal range between??(??0.00??and??0.30??)?Eos, Auto:??2.2??%??--??Normal range between??(??0.0??and??5.0??)?Imm Gran Auto:??0.300??%??--??Normal range between??(??0.001??and??0.429??)?RDW-CV:??13.6??%??--??Normal range between??(??12.0??and??15.0??)?Chemistry ?11/01/2022?1:31 AM ?Creatinine Level:??0.62??mg/dL??--??Normal range between??(??0.55??and??1.02??)?BUN:??8??mg/dL??--??Normal range between??(??8??and??21??)?Glucose Level:??99??mg/dL??--??Normal range between??(??70??and??100??)?Potassium Level:??3.7??mmol/L??--??Normal range between??(??3.5??and??5.3??)?Sodium Level:??141??mmol/L??--??Normal range between??(??136??and??145??)?Calcium Level:??9.1??mg/dL??--??Normal range between??(??8.7??and??10.4??)?CO2:??26??mmol/L??--??Normal range between??(??24??and??31??)?Chloride Level:??108??mmol/L??--??Normal range between??(??98??and??107??)?Anion Gap:??7?--??Normal range between??(??3??and??16??)?BUN/Creat Ratio:??12.9??mg/dL??--??Normal range between??(??10.0??and??20.0??)?hCG Qual Serum:??Negative?eGFR CKD-EPI:??>60??mL/min/1.73 m2 Medications: PROVIDER INFORMATION Provider Role Assigned Unassigned Gurjit Ford CARDING DOUBLER Nurse 10/31/2022 23:44:51 Del Hargrove ED Reg 10/31/2022 23:52:13 Cierra Weathers ED Misc 10/31/2022 23:57:05 Delmi Webb MD ED Provider 11/01/2022 01:52:19 Attending Physician: Unavailable, Provider Admit Doc Unavailable, Provider Consulting Doc VITALS INFORMATION Vital Sign Triage Latest Temp Oral Temp Temporal Temp Intravascular Temp Axillary Temp Rectal 02 Sat 99 % 99 % Respiratory Rate Peripheral Pulse Rate Apical Heart Rate Blood Pressure / 90 mmHg / 90 mmHg Allergies ?predniSONE ?ketamine ?traZODone ?Glutens ?Dairy ?Estrogens Immunizations ?No Immunizations Documented This Visit DISCHARGE INFORMATION Discharge Disposition: Discharge Location: Discharge Date and Time: ED Checkout Date and Time: DEPART REASON INCOMPLETE INFORMATION Problems ?Active ?Bipolar disorder ?Pancreatic cyst ?Mast cell activation syndrome Smoking Status ?Never tobacco user PATIENT EDUCATION INFORMATION Instructions: Migraine Headache Follow up: With: Address: When: Follow up with your neurologist as scheduled With: Address: When: Cielo Blake MD [address] [facility] [address], [place] [address] PATIENT INSTRUCTIONS You were seen tonight for??a migraine headache.?? You have improved after the? migraine cocktail?? .?? You have your neurologist to see in follow-up and I would call in the morning to see if they can??help you with any further management. I am writing a prescription for the??Reglan??tablets.??You may take 5 mg dissolved in your mouth upto 4 times a day as needed for your headache. While I know that??the IV form is more??helpful to you??I wanted you to have a few of the Reglan tablets that you can take with 25 mg of Benadryl??to seeif that helps alleviate your symptoms at home.?? You may also use ibuprofen 600 mg every 6 hours. Return to the ER if you develop a fever, shaking chills??or worsening headache. Emergency department Discharge instructions * Gurjit Ford RN: PERFORM Event Display: ED Discharge Information Authored Date: [id number] JANETTE MONGE :1990 Age:31 years Sex:Female Visit Date:10/31/2022 Primary Care Physician: Unavailable, Provider Discharge Instructions We would like to thank you for allowing us to assist you with your healthcare needs. The following includes patient education materials and information regarding your injury/illness. Diagnosis from Today's Visit Migraine Discharge Vitals Temperature??(Oral) 98.6 ??F (37.0 ??C) Heart Rate??(Peripheral) 87 Respiratory Rate?? 18 Blood Pressure?? 128/83?? Height?? 61.81 in (157.000 cm) Weight?? 169.34 lb (76.80 kg) BMI?? 31.000 Allergies ketamine Dairy Estrogens Glutens predniSONE traZODone What to Do Next Instructions from Your Care Team You were seen tonight for??a migraine headache.?? You have improved after the?? migraine cocktail .?? You have your neurologist to see in follow-up and I would call in the morning to see if they can??help you with any further management. I am writing a prescription for the??Reglan??tablets.??You may take 5 mg dissolved in your mouth upto 4 times a day as needed for your headache. While I know that??the IV form is more??helpful to you??I wanted you to have a few of the Reglan tablets that you can take with 25 mg of Benadryl??to seeif that helps alleviate your symptoms at home.?? You may also use ibuprofen 600 mg every 6 hours. Return to the ER if you develop a fever, shaking chills??or worsening headache. You Need to Schedule the Following Appointments Follow Up with??Follow up with your neurologist as scheduled Follow Up with??Cielo Blake MD Where: [address] [facility] [address] [place] [address]- You were treated today on an emergency basis; it may be orantes to contact your primary care provider to notify them of your visit today. You may have been referred to your regular doctor or a specialist, please follow up as instructed. If your condition worsens or you can't get in to see the doctor, contact the Emergency Department. Medications What How Much When Instructions Next Dose New metoclopramide (metoclopramide 5 mg oral tablet, disintegrating) 1 tab Oral (given by mouth) 4 times a day (before meals and at bedti as needed for headache Beware drowsiness. ??No driving if you take this. ?? Pickup at [facility]/pharmacy #[id number] Unchanged acetaminophen (acetaminophen 500 mg oral tablet) 2 tab Oral (given by mouth) Every 6 hours as needed for as needed for pain Unchanged diphenhydrAMINE (Benadryl 25 mg oral capsule) 1 Capsules Oral (given by mouth) Every 4 hours as needed for itching/rash Unchanged diphenhydramine-zinc acetate topical (diphenhydrAMINE-zinc acetate 2%- 0.1% topical cream) 1 Application Topical (on the skin) 3 times a day as needed for allergy symptoms Unchanged famotidine 20 Milligrams 2 times a day Unchanged ibuprofen (ibuprofen 400 mg oral tablet) 1 tab Oral (given by mouth) Every 6 hours as needed for pain, mild Unchanged loratadine (Allergy (Loratadine) 10 mg oral tablet) 2 tab Oral (given by mouth) Every day Unchanged polyethylene glycol 3350 (polyethylene glycol 3350 oral powder for reconstitution) 17 Gram Oral (given by mouth) Every day as needed for constipation dissolve in water before taking ?? Unchanged SUMAtriptan 25 Milligrams Oral (given by mouth) As needed for migraine headache Unchanged template non-formulary (medication) See instructions Palermo 8 mEq / ??5 mL. Take 0.5 mL by mouth oce daily at bedtime. Discuss this with your primary psychiatrist first. ?? Unchanged template non-formulary (medication) (ketotifen) See instructions 1 mg by mouth in the morning, 2 mg in the evening. ?? Pharmacy Information [facility]/pharmacy #[id number]: [address], [place] [id number] [phone] Education Materials Migraine Headache A migraine headache is an intense, throbbing pain on one side or both sides of the head. Migraine headaches may also cause other symptoms, such as nausea, vomiting, and sensitivity to light and noise. A migraine headache can last from 4 hours to 3 days. Talk with your doctor about what things may bring on (trigger) your migraine headaches. What are the causes? The exact cause of this condition is not known. However, a migraine may be caused when nerves in the brain become irritated and release chemicals that cause inflammation of blood vessels. This inflammation causes pain. This condition may be triggered or caused by: ? Drinking alcohol. ? Smoking. ? Taking medicines, such as: ? Medicine used to treat chest pain (nitroglycerin). ? control pills. ? Estrogen. ? Certain blood pressure medicines. ? Eating or drinking products that contain nitrates, glutamate, aspartame, or tyramine. Aged cheeses,chocolate, or caffeine may also be triggers. ? Doing physical activity. Other things that may trigger a migraine headache include: ? Menstruation. ? . ? Hunger. ? Stress. ? Lack of sleep or too much sleep. ? Weather changes. ? Fatigue. What increases the risk? The following factors may make you more likely to experience migraine headaches: ? Being a certain age. This condition is more common in people who are 25???55 years old. ? Being female. ? Having a family history of migraine headaches. ? Being . ? Having a mental health condition, such as depression or anxiety. ? Being obese. What are the signs or symptoms? The main symptom of this condition is pulsating or throbbing pain. This pain may: ? Happen in any area of the head, such as on one side or both sides. ? Interfere with daily activities. ? Get worse with physical activity. ? Get worse with exposure to bright lights or loud noises. Other symptoms may include: ? Nausea. ? Vomiting. ? Dizziness. ? General sensitivity to bright lights, loud noises, or smells. Before you get a migraine headache, you may get warning signs (an aura). An aura may include: ? Seeing flashing lights or having blind spots. ? Seeing bright spots, halos, or zigzag lines. ? Having tunnel vision or blurred vision. ? Having numbness or a tingling feeling. ? Having trouble talking. ? Having muscle weakness. Some people have symptoms after a migraine headache (postdromal phase), such as: ? Feeling tired. ? Difficulty concentrating. How is this diagnosed? A migraine headache can be diagnosed based on: ? Your symptoms. ? A physical exam. ? Tests, such as: ? CT scan or an MRI of the head. These imaging tests can help rule out other causes of headaches. ? Taking fluid from the spine (lumbar puncture) and analyzing it (cerebrospinal fluid analysis, or CSF analysis). How is this treated? This condition may be treated with medicines that: ? Relieve pain. ? Relieve nausea. ? Prevent migraine headaches. Treatment for this condition may also include: ? Acupuncture. ? Lifestyle changes like avoiding foods that trigger migraine headaches. ? Biofeedback. ? Cognitive behavioral therapy. Follow these instructions at home: Medicines ? Take nyrl-aep-wrympvs and prescription medicines only as told by your health care provider. ? Ask your health care provider if the medicine prescribed to you: ? Requires you to avoid driving or using heavy machinery. ? Can cause constipation. You may need to take these actions to prevent or treat constipation: ? Drink enough fluid to keep your urine pale yellow. ? Take [id number] or prescription medicines. ? Eat foods that are high in fiber, such as beans, whole grains, and fresh fruits and vegetables. ? Limit foods that are high in fat and processed sugars, such as fried or sweet foods. Lifestyle ? Do not drink alcohol. ? Do not use any products that contain nicotine or tobacco, such as cigarettes, e- cigarettes, and chewing tobacco. If you need help quitting, ask your health care provider. ? Get at least 8 hours of sleep every night. ? Find ways to manage stress, such as meditation, deep breathing, or yoga. General instructions ? Keep a journal to find out what may trigger your migraine headaches. For example, write down: ? What you eat and drink. ? How much sleep you get. ? Any change to your diet or medicines. ? If you have a migraine headache: ? Avoid things that make your symptoms worse, such as bright lights. ? It may help to lie down in a dark, quiet room. ? Do not drive or use heavy machinery. ? Ask your health care provider what activities are safe for you while you are experiencing symptoms. ? Keep all follow-up visits as told by your health care provider. This is important. Contact a health care provider if: ? You develop symptoms that are different or more severe than your usual migraine headache symptoms. ? You have more than 15 headache days in one month. Get help right away if: ? Your migraine headache becomes severe. ? Your migraine headache lasts longer than 72 hours. ? You have a fever. ? You have a stiff neck. ? You have vision loss. ? Your muscles feel weak or like you cannot control them. ? You start to lose your balance often. ? You have trouble walking. ? You faint. ? You have a seizure. Summary ? A migraine headache is an intense, throbbing pain on one side or both sides of the head. Migraines may also cause other symptoms, such as nausea, vomiting, and sensitivity to light and noise. ? This condition may be treated with medicines and lifestyle changes. You may also need to avoid certain things that trigger a migraine headache. ? Keep a journal to find out what may trigger your migraine headaches. ? Contact your health care provider if you have more than 15 headache days in a month or you develop symptoms that are different or more severe than your usual migraine headache symptoms. This information is not intended to replace advice given to you by your health care provider. Make sure you discuss any questions you have with your health care provider. Document Revised: 09/27/2019 Document Reviewed: 07/18/2019 Else[employer] Patient Education ?? 2021 [employer] Tests Performed Medications and Immunizations Administered Given Sodium Chloride 0.9%, 1000 mL, IV Benadryl, 25 mg, IV Push Reglan, 10 mg, IV Push Toradol, 15 mg, IV Push Lab Test Name Test Result Date/Time WBC 6.7 x10^3/mcL 11/01/2022 01:31 EDT RBC 4.15 x10^6/mcL 11/01/2022 01:31 EDT Hgb 11.9 g/dL 11/01/2022 01:31 EDT Hct 35.2 % 11/01/2022 01:31 EDT Platelets 340 x10^3/mcL 11/01/2022 01:31 EDT MCV 84.8 fL 11/01/2022 01:31 EDT MCH 28.7 pg 11/01/2022 01:31 EDT MCHC 33.8 g/dL 11/01/2022 01:31 EDT RDW-CV 13.6 % 11/01/2022 01:31 EDT MPV 11.5 fL 11/01/2022 01:31 EDT Neutro Auto 51.7 % 11/01/2022 01:31 EDT Lymph Auto 36.6 % 11/01/2022 01:31 EDT [place] Auto 8.8 % 11/01/2022 01:31 EDT Eos, Auto 2.2 % 11/01/2022 01:31 EDT Basophil Auto 0.4 % 11/01/2022 01:31 EDT Imm Gran Auto 0.300 % 11/01/2022 01:31 EDT Neutro Absolute 3.44 x10^3/mcL 11/01/2022 01:31 EDT Lymph Absolute 2.44 x10^3/mcL 11/01/2022 01:31 EDT [place] Absolute 0.59 x10^3/mcL 11/01/2022 01:31 EDT Eos Absolute 0.15 x10^3/mcL 11/01/2022 01:31 EDT Baso Absolute 0.03 x10^3/mcL 11/01/2022 01:31 EDT Sodium Level 141 mmol/L 11/01/2022 01:31 EDT Potassium Level 3.7 mmol/L 11/01/2022 01:31 EDT Chloride Level 108 mmol/L 11/01/2022 01:31 EDT CO2 26 mmol/L 11/01/2022 01:31 EDT BUN 8 mg/dL 11/01/2022 01:31 EDT Glucose Level 99 mg/dL 11/01/2022 01:31 EDT Creatinine Level 0.62 mg/dL 11/01/2022 01:31 EDT BUN/Creat Ratio 12.9 mg/dL 11/01/2022 01:31 EDT Calcium Level 9.1 mg/dL 11/01/2022 01:31 EDT Anion Gap 7 11/01/2022 01:31 EDT eGFR CKD-EPI >60 mL/min/1.73 m2 11/01/2022 01:31 EDT hCG Qual Serum Negative1 11/01/2022 01:31 EDT Patient/Picture Frame Maker Signature Patient Name:JANETTE MONGE I have received this information and my questions have been answered. Patient/Picture Frame Maker Name: Patient/Picture Frame Maker Signature: Relationship to Patient: Witness Name/Signature: Date: Electronically Signed on: 11/01/2022 03:39 EDT Signed by:ROMULO Patient Care team information Care Team Personnel Name: Unavailable, Provider Position: Physician Member Role: Primary Care Physician Name: Gurjit Ford RN Position: Nurse Member Role: Registered Nurse Name: Cierra Weathers Position: Nurse Aide Member Role: mill feeder Name: Del Hargrove Position: Registration - [place] Name: Delmi Webb MD Position: Physician Member Role: Referring Physician Address: Address: [facility] Emergency Department [address] [place] [address] Care Team Related Persons Name: DANIELLA MONGE Address: [address] [id number] Name: REX MONGE Address: [address] [phone]
[2023-06-15 20:45] LABS: Appearance Urine Clear; Color Urine Yellow; Glucose Urine UA Negative (Negative); Leukocyte Esterase Urine Trace (Negative); Nitrite Urine Negative (Negative); PH 6.5 (5.0-9.0); Specific Gravity - Urine <= 1.005 (1.005-1.025); UMIC TRIGGER UACC YES; Urine Blood Negative (Negative); Urine Ketones Negative (Negative); Urine Protein Negative (Neg-Trace)
[2023-06-15 20:47] LABS: Bacteria Urine None Seen (None Seen); Hyaline Casts Urine 0-2 /LPF (0-2); Squamous Epithelial Cell Urine 0-2 /HPF (0-2); WBC Urine 0-5 /HPF (0-5)
--- NOTE | 2023-06-15 22:11 | MHC.EDTECH ---
Called [facility] for tx at [phone]. Will send when available.
[2023-06-15 22:36] VITALS: BP 117/70; PULSE 89; RESP 20; O2SAT 98
--- NOTE | 2023-06-15 23:17 | PC.NURSE ---
pt resting comfortably, awaiting transport back to [facility]
[2023-06-15 23:58] VITALS: BP 132/83; PULSE 93; RESP 18; TEMP 37; O2SAT 98
== END 2023-06-15 23:59 | disposition other institution (70) ==
PROVIDERS: Physician Assistant Medical; Emergency Provider Emergency Medicine
DX: L50.0 Allergic urticaria (principal); R11.2 Nausea with vomiting, unspecified; Z79.899 Other long term (current) drug therapy
CPT/HCPCS: 36415; 80053; 81001; 83735; 85025; 96361; 96374; 99284